=== PATIENT | male | born 1975 | race African-American/Black ===

== ENCOUNTER 2020-02-26 12:29 | Emergency (ER) | payer SELFPAY ==
--- NOTE | 2020-02-26 12:42 | ER Document Report ---
HPI - HPI Time Seen by Provider: 02/26/20 12:36 Notes: 44-year-old male presenting to the emergency department with right thumb pain, swelling and sometimes drainage. He reports ongoing for last 2 weeks. He reports history of having similar in the past. He denies any fever, chills, nausea, vomiting or diarrhea. - ROS Systems Reviewed and Negative: Yes All other systems reviewed and negative - CONSTITUTIONAL Constitutional: DENIES: Fever - DERM Skin Problems: Pustule Past Medical History - General Information source: Patient - Social History Smoking Status: Never Smoker Frequency of alcohol use: Occasional Drug Abuse: None Family History: None - Medical History Medical History: Negative Surgical Hx: Negative Vertical Provider Document - CONSTITUTIONAL Notes: PHYSICAL EXAMINATION: GENERAL: Well-appearing, well-nourished and in no acute distress. HEAD: Atraumatic, normocephalic. EYES: Pupils equal round extraocular movements intact, conjunctiva are normal. ENT: Nares patent NECK: Normal range of motion LUNGS: No respiratory distress Musculoskeletal: Normal range of motion NEUROLOGICAL: Normal speech, normal gait. PSYCH: Normal mood, normal affect. SKIN: Tender erythematous area noted to medial aspect of right thumb. Fluctuance noted. Course - Re-evaluation Re-evalutation: Large amount of purulent fowl smelling drainage obtained. Pt tolerated well. Procedures - Incision and Drainage R thumb Type: Simple Anesthetic type: 1% Lidocaine Blade size: 11 I&D procedure: Chlorprep applied Incision Method: Incision made by scalpel Discharge - Discharge Clinical Impression: Paronychia Condition: Stable Disposition: HOME, SELF-CARE Additional Instructions: Paronychia You have an infection between the nail and the surrounding skin, called a paronychia. The germs infect the area after a minor skin injury, such as a hangnail. This infection is treated by releasing the pus. This is usually done by the skin from the nail. If the infection has spread underneath the nail, partial removal of the nail may be necessary. Hot-soak the area three or four times daily. Antibiotics are often given, but are not always necessary. Healing takes about a week. If pain or swelling becomes severe or if you develop fever or chills, call the doctor or return for re-examination. Prescriptions: Sulfamethoxazole/Trimethoprim [Bactrim Ds Tablet] 1 tab PO BID #14 tablet Referrals: LOCALTX,NO [Primary Care Provider] - Follow up as needed
[2020-02-26 14:12] VITALS: BP 149/90
== END 2020-02-26 14:12 | disposition home or self-care (01) ==
LOC: ER 12:29
DX: L03.011 Cellulitis of right finger (principal)
CPT/HCPCS: 99283